=== PATIENT | female | born 1975 | race Asian ===

== ENCOUNTER 2020-07-02 14:28 | Emergency (ER) | payer BC, OTHER ==
[~2020-07-02] VITALS: Ht 170.2 cm; Wt 63.5 kg
[2020-07-02 14:33] VITALS: BP_SYST 144
[2020-07-02] MEDS ORDERED: KETOROLAC TROMETHAMINE 60 MG/2 ML VIAL IM ONE (15:45)
[2020-07-02 16:40] VITALS: BP_SYST 137
== END 2020-07-02 16:40 | disposition home or self-care (01) ==
LOC: SED 14:28
DX: M77.8 Other enthesopathies, not elsewhere classified (principal)
CPT/HCPCS: 73030; 96372; 99283; J1885